=== PATIENT | male | born 1990 ===

== ENCOUNTER 2020-09-07 10:31 | Outpatient (CLI) | payer BC, SELFPAY | END 2020-09-07 10:32 | disposition home or self-care (01) | LOC: ANHCOVIDVC 10:31 | PROVIDERS: PCP Family Medicine | DX: Z23 Encounter for immunization (principal) | CPT/HCPCS: 0001A; 91300 ==

== ENCOUNTER 2020-09-28 10:28 | Outpatient (CLI) | payer BC, SELFPAY | END 2020-09-28 10:29 | disposition home or self-care (01) | LOC: ANHCOVIDVC 10:28 | PROVIDERS: PCP Family Medicine | DX: Z23 Encounter for immunization (principal) | CPT/HCPCS: 0002A; 91300 ==

== ENCOUNTER 2021-06-26 10:06 | Outpatient (CLI) | payer BC, SELFPAY ==
[2021-06-26 12:37] LABS: SARS-CoV-2 RNA PCR Positive (Negative)
== END 2021-06-26 10:07 | disposition home or self-care (01) ==
PROVIDERS: PCP Physician Assistant; Visit Provider Physician Assistant
DX: U07.1 COVID-19 (principal); R05.9 Cough, unspecified
CPT/HCPCS: C9803; U0003; U0005

== ENCOUNTER 2024-04-20 14:44 | Outpatient (CLI) | payer BC, SELFPAY ==
--- NOTE | ~2024-04-20 | XR_ITS ---
EXAMINATION: XR chest 2V DATE: 04/20/2024 15:04 INDICATION: Cough. TECHNIQUE: Frontal and lateral views of the chest were obtained. COMPARISON: None. FINDINGS: There are small nodules in right upper lobe. No pleural effusion or pneumothorax. The heart size is normal. IMPRESSION: 1. Small nodules in right lung upper lobe suspicious for pneumonia. Reviewed, dictated and finalized at location B.
== END 2024-04-20 14:45 | disposition home or self-care (01) ==
LOC: MICIMG 14:46
PROVIDERS: PCP Physician Assistant; Visit Provider Physician Assistant
DX: R91.8 Other nonspecific abnormal finding of lung field (principal); R05.9 Cough, unspecified
CPT/HCPCS: 71046

== ENCOUNTER 2025-04-27 12:56 | Outpatient (CLI) | payer BC, SELFPAY ==
--- NOTE | ~2025-04-27 | XR_ITS ---
EXAMINATION: XR chest 2V DATE: 04/27/2025 13:23 INDICATION: Pleurodynia TECHNIQUE: frontal and lateral views of the chest were obtained. COMPARISON: Chest radiograph dated 04/20/2024 FINDINGS: The lungs remain clear with no focal airspace opacities, pulmonary edema, pleural effusion or pneumothorax. The cardiomediastinal silhouette is normal. Visualized bones and soft tissues are unremarkable. IMPRESSION: 1. No acute cardiopulmonary disease. Reviewed, dictated and finalized at location A. K BAKER
== END 2025-04-27 12:57 | disposition home or self-care (01) ==
LOC: MICIMG 12:57
PROVIDERS: PCP Physician Assistant; Visit Provider Physician Assistant
DX: R07.81 Pleurodynia (principal)
CPT/HCPCS: 71046